=== PATIENT | female | born 1965 | race Caucasian/White ===

== ENCOUNTER 2024-12-14 15:50 | Emergency (ER) | payer BC ==
[~2024-12-14] VITALS: Ht 152.4 cm; Wt 64.4 kg
[2024-12-14 16:24] VITALS: TEMP 97.6
[2024-12-14 17:58] LABS: IMMATURE GRANULOCYTE ABSOLUTE 0.05 K/uL (0-1); NUCLEATED RED BLOOD CELLS 0.0 % (0.0-0.19); PLATELET COUNT (AUTO) 252 K/uL (130-400); RED BLOOD CELL COUNT(AUTO) 4.41 MIL/uL (4.00-5.50); RED CELL DISTRIBUTION WIDTH 11.9 % (11.0-15.5); WHITE BLOOD COUNT (AUTO) 10.0 K/uL (4.8-10.8)
[2024-12-14 18:06] LABS: CREATININE 0.7 mg/dL (0.5-1.0); GLOMERULAR FILTR. RATE CALC 98.0 mL/min (>90); GLUCOSE,RANDOM 96.0 mg/dL (70-105); SODIUM SERUM 137.0 mmol/L (136-145); UREA NITROGEN, BLOOD 9.0 mg/dL (7-18)
[2024-12-14] MEDS: 0.9%NACL 1000ML 1,000 ML IV ONE (18:08)
[2024-12-14 18:23] LABS: APPEARANCE,URINE CLEAR (CLEAR); GLUCOSE, URINE (UA) NEGATIVE (NEGATIVE); LEUKOCYTE ESTERASE ,URINE NEGATIVE Leu/uL (NEGATIVE); NITRATE,URINE NEGATIVE (NEGATIVE); OCCULT BLOOD,URINE NEGATIVE (NEGATIVE)
[2024-12-14] MEDS ORDERED: IOHEXOL-350 75 ML VIAL IV ONE (18:25)
[2024-12-14 18:27] LABS: ADD UA MICROSCOPIC NO
--- NOTE | 2024-12-14 19:20 | ERN ---
ED Note History of Present Illness Stated Complaint: CONSTIPATION Chief Complaint: Constipation Time Seen by MD: 16:14 Time Seen by Midlevel: 16:14 Dictation: The patient is a 59-year-old female with a history of cholecystectomy, hysterectomy, hypertension who presents to the emergency department with two days of lower abdominal pain. Patient reports that for the last three weeks she has been constipated but today she had a bowel movements reports diarrhea. Patient denies any nausea or vomiting, denies any fevers. Allergies: Coded Allergies: codeine (Unverified Allergy, Unknown, 12/14/24) erythromycin base (Unverified Allergy, Unknown, 12/14/24) Past Medical History Past Medical History: Hypertension, Other Additional Past Medical Hx: LINDEN'S Surgical History: Hysterectomy, Tonsillectomy, Cholecystectomy Surgical History Other: LT KNEE, SINUS RN Note Reviewed/Agreed w/PFSH: Yes Review of System Dictation Constitutional: Negative for fever,chills, and weight loss Eyes: Negative for injury, pain,redness, and discharge ENT: Negative for injury,pain or swelling Cardiovascular: Negative for chest pain, palpitations, and edema Respiratory: Negative for shortness of breath, cough, and wheezing, Abdomen/GI: Negative for nausea, vomiting, positive for abdominal pain, constipation, diarrhea Back: Negative for injury and pain : Negative for injury, bleeding and discharge MS/Extremity: Negative for injury and deformity Skin: Negative for rash, and discoloration Neuro: Negative for headache, weakness, numbness, tingling, and seizure Psych: Negative for suicide ideation, homicidal ideation, and hallucinations Initial Vital Sign VS Vital Signs Date Time Temp Pulse Resp B/P (MAP) Pulse Ox O2 Delivery O2 Flow Rate FiO2 12/14/24 15:51 98.2 80 16 151/88 99 Room Air 0 12/14/24 16:24 21 Physical Exam Dictation Vital Signs reviewed General Appearance: Alert, oriented x 3, no acute distress, well developed, nourished. Head and Face: non-traumatic. Eyes: PERRL, pink conjunctivas, eyelid no trauma, anterior chamber with arcus senilis. Ears: Pinnas intact and no signs of trauma or erythema ear canals clear and no discharge TM no erythema Nose: No discharge, no bleeding. Oropharynx: Mouth normal, tongue pink. pharynx clear,no erythema, tonsils no exudates, no abscesses noted, mucous membrane moist Neck: Supple, non-tender, no thyromegaly, no masses, no JVD, no bruits Breast:Deferred Chest:No tenderness, no crepitus, no paradoxical movement, no retractions Lungs:Clear, well-ventilated, symmetric, no rales, no wheezing, no rhonchi, no stridor, good breath sounds bilaterally Heart: Regular rate, regular rhythm, no murmur, no gallops Vascular: no peripheral edema, Abdomen: Soft, positive bowel sounds, nondistended, no guarding, Right lower quadrant tenderness, no rebound, no masses no hepatomegaly, no splenomegaly, no Wilson's sign, no hernias. Rectal: Deferred Genital: Deferred Neurological: Normal speech, motor function intact, sensory function intact Musculoskeletal: Neck nontender, full range of motion, back nontender, full range of motion, Extremities: nontender, full range of motion Skin: Color pink, dry, no turgor, no rash, no lacerations, no abrasions, no contusions. Lymphatic: Deferred Results (Laboratory/Radiology) Laboratory/Radiology Laboratory Tests Test 12/14/24 17:46 12/14/24 18:11 White Blood Count 10.0 K/uL (4.8-10.8) Red Blood Count 4.41 MIL/uL (4.00-5.50) Hemoglobin 13.3 g/dL (12.0-16.0) Hematocrit 38.3 % (36-48) Mean Corpuscular Volume 86.8 fL (79-99) Mean Corpuscular Hemoglobin 30.2 pg (27.0-33.0) Mean Corpuscular Hemoglobin Concent 34.7 g/dL (32.0-36.0) Red Cell Distribution Width 11.9 % (11.0-15.5) Platelet Count 252 K/uL (130-400) Mean Platelet Volume 9.8 fL (7.5-10.5) Immature Granulocyte % (Auto) 0.5 % (0-1) Neutrophils (%) (Auto) 71.2 % (40.0-77.0) Lymphocytes (%) (Auto) 19.6 % (21.0-51.0) L Monocytes (%) (Auto) 6.7 % (3.0-13.0) Eosinophils (%) (Auto) 1.7 % (0.0-8.0) Basophils (%) (Auto) 0.3 % (0.0-5.0) Neutrophils # (Auto) 7.1 K/uL (1.8-7.7) Lymphocytes # (Auto) 2.0 K/uL (1.0-4.8) Monocytes # (Auto) 0.7 K/uL (0.1-1.0) Eosinophils # (Auto) 0.17 K/uL (0.00-0.70) Basophils # (Auto) 0.03 K/uL (0.00-0.20) Absolute Immature Granulocyte (auto 0.05 K/uL (0-1) Nucleated Red Blood Cells 0.0 % (0.0-0.19) Sodium Level 137 mmol/L (136-145) Potassium Level 4.2 mmol/L (3.5-5.1) Chloride Level 102 mmol/L (101-111) Carbon Dioxide Level 28 mmol/L (21-32) Blood Urea Nitrogen 9 mg/dL (7-18) Creatinine 0.7 mg/dL (0.5-1.0) Glomerular Filtration Rate Calc 98 mL/min (>90) Random Glucose 96 mg/dL (70-105) Total Calcium 9.0 mg/dL (8.5-10.1) Urine Color COLORLESS (YELLOW) Urine Appearance CLEAR (CLEAR) Urine pH 6.0 (5.0-8.0) Urine Specific [place] 1.003 (1.001-1.031) Urine Protein NEGATIVE mg/dL (NEGATIVE) Urine Glucose (UA) NEGATIVE mg/dL (NEGATIVE) Urine Ketones NEGATIVE mg/dL (NEGATIVE) Urine Occult Blood NEGATIVE (NEGATIVE) Urine Nitrate NEGATIVE (NEGATIVE) Urine Bilirubin NEGATIVE mg/dL (NEGATIVE) Urine Urobilinogen 0.2 mg/dL (0.2-1.0) Urine Leukocyte Esterase NEGATIVE Abdulaziz/uL REASON: rlq abd pain ORDERING PHYSICIAN: DAE MUNOZ PROCEDURE: ABD PEL W - CT ABDOMEN/PELVIS W/CONTRAST EXAM: CT Abdomen and Pelvis with IV contrast CLINICAL HISTORY: Patient presents with right lower quadrant abdominal pain. TECHNIQUE: Axial computed tomography images of the abdomen and pelvis with intravenous contrast. CONTRAST: Administered intravenously. COMPARISON: None provided. FINDINGS: LUNG BASES: The lung bases are clear. No pleural effusions. LIVER: The liver is enlarged, measuring 16.8 cm in craniocaudal span. GALLBLADDER AND BILE DUCTS: The gallbladder is surgically absent. No biliary ductal dilatation. PANCREAS: Unremarkable. SPLEEN: Unremarkable. ADRENAL GLANDS: Unremarkable. KIDNEYS, URETERS, AND BLADDER: The kidneys are unremarkable. No hydronephrosis, hydroureter, or urinary calculi. Mild diffuse urinary bladder wall thickening with maximum wall thickness of 0.4 cm and minimal perivesical fat stranding, concerning for cystitis. STOMACH AND BOWEL: Sigmoid colon diverticulosis with short segment circumferential wall thickening and pericolonic fat stranding, concerning for diverticulitis without abscess or perforation. Mild constipation. Small hiatal hernia. APPENDIX: Normal appearance. No evidence of acute appendicitis. PERITONEUM: No free fluid. No free air. LYMPH NODES: No lymphadenopathy. REPRODUCTIVE: The uterus is surgically absent. No focal adnexal lesion. VASCULATURE: No evidence of abdominal aortic aneurysm. BONES: No aggressive appearing osseous lesion. No acute osseous pathology. IMPRESSION: Sigmoid diverticulitis without abscess or perforation. Mild urinary bladder wall thickening with perivesical fat stranding, concerning for cystitis. Hepatomegaly. Small hiatal hernia. Post-cholecystectomy status. Surgical absence of the uterus. /[facility] Labs Reviewed?: Yes ED Course ED Course Orders Procedure Category Date Status Time Cbc With Differential LAB 12/14/24 Complete 17:36 Urinalysis Profile LAB 12/14/24 Complete 17:36 0.9%Nacl 1000ml (Ns PHA 12/14/24 Complete 1000ml) 18:00 Basic Metabolic Panel LAB 12/14/24 Complete 17:36 Ketorolac PHA 12/14/24 Complete Tromethamine 15mg/Ml 18:00 Ct Abdomen/Pelvis CT 12/14/24 Resulted W/Contrast 17:36 Iohexol (Omnipaque) PHA 12/14/24 Complete 18:25 Zosyn 3.375gm+Ns 50ml PHA 12/14/24 Complete (Zosyn 3.375gm+Ns 20:30 Magnesium Citrate PHA 12/14/24 Complete (Magnesium Citrate) 20:30 Current Medications Medications (Trade) Dose Ordered Sig/Rain Route PRN Reason Start Time Stop Time Status Last Admin Dose Admin Iohexol (Omnipaque) 75 ml STK-MED ONCE IV 12/14/24 18:25 12/14/24 18:25 DC Ketorolac Tromethamine (toRADol) 15 mg ONCE ONCE IV 12/14/24 18:00 12/14/24 18:01 DC 12/14/24 18:09 Magnesium Citrate (Magnesium Citrate) 296 ml ONCE ONCE PO 12/14/24 20:30 12/14/24 20:31 DC 12/14/24 20:27 Piperacillin Sod/ Tazobactam Sod (Zosyn 3.375gm+NS 50ml) 3.375 gm ONCE ONCE IV 12/14/24 20:30 12/14/24 20:31 DC 12/14/24 20:26 Sodium Chloride 1,000 ml @ 0 mls/hr ONCE ONCE IV 12/14/24 18:00 12/14/24 18:01 DC 12/14/24 18:08 Vital Signs Date Time Temp Pulse Resp B/P (MAP) Pulse Ox O2 Delivery O2 Flow Rate FiO2 12/14/24 20:18 78 18 148/88 100 Room Air* 0 21 12/14/24 19:02 75 19 153/92 97 Room Air* 0 21 12/14/24 17:45 78 20 167/81 97 Room Air* 0 21 12/14/24 16:24 97.5 79 20 119/73 100 Room Air* 0 21 12/14/24 15:51 98.2 80 16 151/88 99 Room Air 0 Medical Decision Making MDM The patient is a 59-year-old female with a history of cholecystectomy, hysterectomy, hypertension who presents to the emergency department with two days of lower abdominal pain. Patient reports that for the last three weeks she has been constipated but today she had a bowel movements reports diarrhea. Patient denies any nausea or vomiting, denies any fevers. CBC showed no leukocytosis, no anemia, chemistry showed no electrolyte imbalance, normal renal function, urinalysis unremarkable. CT abdomen and pelvis showed sigmoid diverticulitis without abscess or perforation. Post cholecystectomy. On physical exam patient is in no acute distress, nontoxic appearance. Reports improving in pain. Patient with stable vital signs. patient will be discharge to follow up with PCP Differential diagnosis: Appendicitis, constipation, bowel obstruction, electrolyte imbalance, UTI Need for hospitalization: Patient does not meet criteria for hospitalization. There are no social concerns with this patient. DX & DISP Disposition: Discharge Departure Impression: Primary Impression: Diverticulitis Additional Impression: Constipation Condition: Stable Scripts Metronidazole (Metronidazole) 500 Mg Tablet 1 TAB PO TID for 10 Days, #30 TAB 0 Refills Prov: DAE MUNOZ RICARDO 12/14/24 Ciprofloxacin HCl (Cipro) 500 Mg Tablet 1 TAB PO BID for 10 Days, #20 TAB 0 Refills Prov: DAE MUNOZ RICARDO 12/14/24 Additional Instructions: Your labs were unremarkable. you have constipation and diverticulitis. Please take your medications as prescribe. Do no drink alcohol while you are taking yo ur medications because you can have some serious side effects. if your symptoms worsen please return to ER. FOLLOW-UP WITH PRIMARY CARE PROVIDER IN 1 TO 2 DAYS. TAKE MEDICATIONS DIRECTED HERE IN THE EMERGENCY ROOM. OKAY TO CONTINUE HOME MEDICATIONS UNLESS OTHERWISE DISCUSSED DURING YOUR VISIT IN THE EMERGENCY ROOM TODAY. RETURN TO YOUR NEAREST EMERGENCY ROOM IF SYMPTOMS WORSEN OR IF THERE IS NO IMPROVEMENT. CALL 911 IF YOU NEED IMMEDIATE ASSISTANCE. TAKE TYLENOL [id number]-GPU-DUULLIK NEEDED AND IF NO CONTRAINDICATIONS ARE PRESENT. INCREASE ORAL HYDRATION. A WOUND CULTURE OR URINE CULTURE WAS ORDERED HERE IN THE EMERGENCY ROOM DEPARTMENT PLEASE FOLLOW-UP WITH PRIMARY CARE PROVIDER AND ADVISE THEM TO GET REPEAT PORTS FROM OUR FACILITY. IF YOU HAD ANY MICHAEL WRAP/SPLINTS THAT WERE APPLIED HERE, PLEASE DO NOT REMOVE THEM UNTIL YOU SEE YOUR PRIMARY CARE OR SPECIALTY. Referrals: SELF,REFERRAL (PCP) Time of Disposition: 20:41 I have reviewed the case, and I agree with, Diagnosis and Plan DAE MUNOZ RICARDO Dec 14, 2024 19:20
--- NOTE | 2024-12-14 20:07 | HMCIMG ---
EXAM: CT Abdomen and Pelvis with IV contrast CLINICAL HISTORY: Patient presents with right lower quadrant abdominal pain. TECHNIQUE: Axial computed tomography images of the abdomen and pelvis with intravenous contrast. CONTRAST: Administered intravenously. COMPARISON: None provided. FINDINGS: LUNG BASES: The lung bases are clear. No pleural effusions. LIVER: The liver is enlarged, measuring 16.8 cm in craniocaudal span. GALLBLADDER AND BILE DUCTS: The gallbladder is surgically absent. No biliary ductal dilatation. PANCREAS: Unremarkable. SPLEEN: Unremarkable. ADRENAL GLANDS: Unremarkable. KIDNEYS, URETERS, AND BLADDER: The kidneys are unremarkable. No hydronephrosis, hydroureter, or urinary calculi. Mild diffuse urinary bladder wall thickening with maximum wall thickness of 0.4 cm and minimal perivesical fat stranding, concerning for cystitis. STOMACH AND BOWEL: Sigmoid colon diverticulosis with short segment circumferential wall thickening and pericolonic fat stranding, concerning for diverticulitis without abscess or perforation. Mild constipation. Small hiatal hernia. APPENDIX: Normal appearance. No evidence of acute appendicitis. PERITONEUM: No free fluid. No free air. LYMPH NODES: No lymphadenopathy. REPRODUCTIVE: The uterus is surgically absent. No focal adnexal lesion. VASCULATURE: No evidence of abdominal aortic aneurysm. BONES: No aggressive appearing osseous lesion. No acute osseous pathology. IMPRESSION: Sigmoid diverticulitis without abscess or perforation. Mild urinary bladder wall thickening with perivesical fat stranding, concerning for cystitis. Hepatomegaly. Small hiatal hernia. Post-cholecystectomy status. Surgical absence of the uterus. /[place]
[2024-12-14] MEDS: ZOSYN 3.375GM +NS 50ML IV ONE (20:26)
[2024-12-14] MEDS: MAGNESIUM CITRATE 296 ML SOLUTION PO ONE (20:27)
[2024-12-14] MEDS ORDERED: CIPR-278 PO (20:45)
[2024-12-14] MEDS ORDERED: METR-172 PO (20:45)
[2024-12-14 21:22] VITALS: BP 125/87; PULSE 75; RESP 19; O2SAT 100
== END 2024-12-14 21:25 | disposition home or self-care (01) ==
LOC: EDH 15:50
DX: K57.32 Diverticulitis of large intestine without perforation or abscess without bleeding (principal); K59.00 Constipation, unspecified; I10 Essential (primary) hypertension; Z88.1 Allergy status to other antibiotic agents; Z88.5 Allergy status to narcotic agent; Z90.49 Acquired absence of other specified parts of digestive tract; Z90.710 Acquired absence of both cervix and uterus
CPT/HCPCS: 99284; 74177; 96365; 96361; 96375; 80048; 85025; 81003; 36415; J1885; J7030; J2543 ×2; Q9967